=== PATIENT | female | born 1985 | race Caucasian/White ===

== ENCOUNTER 2016-11-23 07:28 | Emergency (ER) | payer OTHER | END 2016-11-23 09:40 | disposition home or self-care (01) | LOC: ER1 07:28 | DX: S46.912A Strain of unspecified muscle, fascia and tendon at shoulder and upper arm level, left arm, initial encounter (principal); F17.200 Nicotine dependence, unspecified, uncomplicated; X58.XXXA Exposure to other specified factors, initial encounter; Y92.003 Bedroom of unspecified non-institutional (private) residence as the place of occurrence of the external cause | CPT/HCPCS: 73030; 99283 ==

== ENCOUNTER → 2016-12-07 | Outpatient (CLI) | payer OTHER | LOC: RAD 09:00 | DX: M24.411 Recurrent dislocation, right shoulder (principal); R60.0 Localized edema | CPT/HCPCS: 73040; 73219; A9577; Q9962 ==

== ENCOUNTER → 2020-10-28 | Outpatient (CLI) | payer OTHER | LOC: KOH-I 11:43 | DX: M54.2 Cervicalgia (principal); M47.812 Spondylosis without myelopathy or radiculopathy, cervical region | CPT/HCPCS: 72040 ==

== ENCOUNTER → 2022-04-08 | Outpatient (CLI) | payer OTHER | LOC: CT 13:30 | DX: R31.29 Other microscopic hematuria (principal); N28.89 Other specified disorders of kidney and ureter | CPT/HCPCS: Q9967 ==